=== PATIENT | male | born 1980 | race American Indian/Alaskan Native ===

== ENCOUNTER 2021-05-31 16:23 | Emergency (ER) | payer OTHER ==
[2021-05-31] MEDS ORDERED: Lactated Ringers 1,000 ML IV ONE (17:02)
[2021-05-31] MEDS ORDERED: Ketorolac 30 MG/ML SDV IVPUSH ONE (17:02)
[2021-05-31] MEDS ORDERED: Ondansetron 4 MG/2 ML SDV IVPUSH ONE (17:03)
[2021-05-31] MEDS ORDERED: Sodium Chloride 0.9% 10 ML Syringe FLUSH PRN (17:04)
[2021-05-31] MEDS ORDERED: Dicyclomine 10 MG Cap PO ONE (17:15)
[2021-05-31] MEDS ORDERED: Acetaminophen 1,000 MG in Premix Bag 1 BAG IV ONE (17:36)
[2021-05-31] MEDS ORDERED: Iopamidol 612 MG/ML 100 ML Bottle IV SCH (18:00)
[2021-05-31] MEDS ORDERED: Sodium Chloride 0.9% 75 ML IV SCH (18:00)
== END 2021-05-31 19:05 | disposition home or self-care (01) ==
LOC: JP.ED 16:23
DX: K80.20 Calculus of gallbladder without cholecystitis without obstruction (principal); K92.1 Melena; K60.2 Anal fissure, unspecified; F15.11 Other stimulant abuse, in remission; F11.90 Opioid use, unspecified, uncomplicated; R19.7 Diarrhea, unspecified
CPT/HCPCS: 36415; 74177; 80048; 80076; 80305-QW; 83605; 85025; 86140; 96374; 96375; 99283; 99284-25; A9270-GY; J0131; J1885; J2405; J7120; Q9967